=== PATIENT | female | born 1965 | race Caucasian/White ===

== ENCOUNTER 2017-04-16 08:04 | Emergency (ER) | payer OTHER ==
[~2017-04-16 08:04] MED LIST: CELEXA10 MG PO; CIPROFLOXACIN500 MG PO; DIFLUCAN150 MG PO; HYDROCODONE BIT1 T11 PO
[2017-04-16 08:09] VITALS: BP 150/77
[2017-04-16 08:49] LABS: BILIRUBIN NEGATIVE (NEGATIVE); BLOOD NEGATIVE (NEGATIVE); CLARITY SL CLOUDY (CLEAR); COLOR YELLOW (YELLOW); GLUCOSE NEGATIVE (NEGATIVE); KETONE NEGATIVE (NEGATIVE); LEUKO ESTERASE NEGATIVE (NEGATIVE); NITRITE NEGATIVE (NEGATIVE); PH 5.5 (5.0-9.0); PROTEIN NEGATIVE (NEGATIVE); UROBILINOGEN 0.2 E.U./dl (0.2-1.0)
[2017-04-16 08:59] LABS: BACTERIA TRACE; MUCOUS 1+; URINE REFLEX COMMENT NO (NO)
[2017-04-16] MEDS ORDERED: CYCLOBENZAPRINE10 MG PO (09:17)
[2017-04-16] MEDS ORDERED: ULTRAM50 MG PO (09:17)
== END 2017-04-16 09:23 | disposition home or self-care (01) ==
LOC: ED 08:04
PROVIDERS: Emergency Medicine
DX: S39.012A Strain of muscle, fascia and tendon of lower back, initial encounter (principal); Z88.1 Allergy status to other antibiotic agents; Z88.2 Allergy status to sulfonamides; Z90.49 Acquired absence of other specified parts of digestive tract; X50.9XXA Other and unspecified overexertion or strenuous movements or postures, initial encounter; Y93.89 Activity, other specified; Y92.9 Unspecified place or not applicable; Y99.9 Unspecified external cause status

== ENCOUNTER → 2019-04-09 | Outpatient (CLI) | payer OTHER ==
[~2019-04-09] MED LIST changes: +CYCLOBENZAPRINE10 MG PO; +IRON325 M1 PO; +ULTRAM50 MG PO
--- NOTE | ~2019-04-09 | ST ---
[place], [place] EXERCISE STRESS TEST REPORT NAME: [facility] #: [id number] UNIT #: [id number] ROOM: DOCTOR: ANGEL FLOYD MD BIRTHDATE: [birth year] DOS: 04/09/2019 The patient walked on the Fidel protocol, duration of 7 minutes, achieving a heart rate of 147, which is 88% predicted heart rate. Peak blood pressure is 150/80. The patient had no chest discomfort, no dysrhythmia. No EKG changes, suggestion of myocardial ischemia or injury. Baseline echo obtained. Echo obtained with a peak heart rate, there is improvement of ejection fraction, thickening of all the segments. No wall motion abnormalities. FINAL IMPRESSION: Normal EKG with exercise. No chest pain with exercise. No dysrhythmia with exercise. Normal echo response with improvement of ejection fraction, thickening of all the segments. This is a normal exercise stress echocardiogram. ANGEL FLOYD MD CM:STRESS:EXERCISE STRESS TEST REPORT [id number] ANGEL FLOYD MD
--- NOTE | 2019-04-09 07:00 | NUR ---
INFORMED CONSENT OBTAINED FOR EXERCISE STRESS ECHO WITH DR. FLOYD. RESTING EKG NSR WITH A SUPINE HR OF 73 WITH BP OF 118/78 AND HR OF 81 WITH BP OF 116/78 IN STANDING POSITION. PT COMPLETED 7:08 OF A 2:00 KEILA PROTOCOL WITH COMPLETION OF 1:08 OF STAGE IV AT 4.2 MPH AND 16% GRADE. REACHED A PEAK HR OF 147 WHICH IS 88% OF PREDICTED MAX AND A PEAK BP OF 150/78. TEST TERMINATED BECAUSE OF PHYSICAN DISCRETION. HAD NO CHEST PAIN OR ANY EKG CHANGES. NEGATIVE EXERCISE STRESS ECHO. SEE ECHO REPORT FOR FULL REPORT. HAS A HIGH EXERCISE TOLERANCE. LAST RECOVERY HR OF 74 WITH BP OF 118/50. IV DISCONTINUED AND DISCHARGED IN STABLE CONDITION.
== END | disposition home or self-care (01) ==
LOC: CARD 00:54
DX: I49.3 Ventricular premature depolarization (principal); R94.31 Abnormal electrocardiogram [ECG] [EKG]

== ENCOUNTER 2019-10-21 15:41 | Emergency (ER) | payer OTHER ==
[~2019-10-21] VITALS: Ht 154.9 cm; Wt 65.8 kg
[2019-10-21 15:42] VITALS: BP 142/76
[2019-10-21] MEDS ORDERED: DOXYCYCLINE100 M3 PO ×2 (16:30→16:31)
[2019-10-21] MEDS ORDERED: IBUPROFEN600 MG PO ×2 (16:30→16:31)
== END 2019-10-21 16:48 | disposition home or self-care (01) ==
LOC: ED 15:41
DX: L02.31 Cutaneous abscess of buttock (principal); Z88.1 Allergy status to other antibiotic agents; Z88.2 Allergy status to sulfonamides; Z79.899 Other long term (current) drug therapy

== ENCOUNTER 2019-12-01 21:39 | Emergency (ER) | payer OTHER ==
[~2019-12-01] VITALS: Ht 154.9 cm; Wt 65.8 kg
[~2019-12-01 21:39] MED LIST changes: +DOXYCYCLINE100 M3 PO; +IBUPROFEN600 MG PO
[2019-12-01 21:42] VITALS: BP 127/72
== END 2019-12-02 03:58 | disposition home or self-care (01) ==
LOC: ED 21:39
DX: S96.911A Strain of unspecified muscle and tendon at ankle and foot level, right foot, initial encounter (principal); Z88.1 Allergy status to other antibiotic agents; Z88.2 Allergy status to sulfonamides; Z79.899 Other long term (current) drug therapy; W10.8XXA Fall (on) (from) other stairs and steps, initial encounter; Y93.89 Activity, other specified; Y92.098 Other place in other non-institutional residence as the place of occurrence of the external cause; Y99.8 Other external cause status

== ENCOUNTER → 2020-06-08 | Outpatient (CLI) | payer OTHER ==
[2020-06-08 10:46] LABS: BASO # 0.1 10*3/uL (0.0-0.1); BASO % 0.8 % (0.0-1.0); EOS # 0.2 10*3/uL (0.0-0.4); EOS % 2.4 % (1.0-4.0); HEMATOCRIT 38.7 % (37.0-47.0); LYMPH # 1.4 10*3/uL (1.3-4.4); MEAN CELL VOLUME 91.3 fl (81.0-99.0); MEAN CORPUSCULAR HGB 29.7 pg (27.0-31.0); MEAN CORPUSCULAR HGB CONC 32.6 g/dl (33.0-37.0); MEAN PLATELET VOLUME 11.3 fl (9.6-12.3); MONO # 0.5 10*3/uL (0.1-1.0); MONO % 5.9 % (3.0-9.0); NEUT # 6.5 10*3/uL (2.3-7.9); NEUT % 74.7 % (47.0-73.0); PLATELET COUNT AUTOMATED 266 10*3/uL (130-400); RED BLOOD COUNT 4.24 10*6/uL (4.10-5.10); RED CELL DISTRI WIDTH 13.3 % (0-14.5); WHITE BLOOD COUNT 8.6 10*3/uL (4.8-10.8)
[2020-06-08 10:52] LABS: BILIRUBIN NEGATIVE (NEGATIVE); BLOOD 1+ (NEGATIVE); CLARITY CLEAR (CLEAR); COLOR YELLOW (YELLOW); GLUCOSE NEGATIVE (NEGATIVE); KETONE NEGATIVE (NEGATIVE); LEUKO ESTERASE NEGATIVE (NEGATIVE); NITRITE NEGATIVE (NEGATIVE); SPECIFIC GRAVITY 1.015 (1.005-1.030); UROBILINOGEN 0.2 E.U./dl (0.2-1.0)
[2020-06-08 10:58] LABS: BACTERIA TRACE; EPITHELIAL CELLS 0-2; WBC 0-2 wbc/hpf (0-5)
[2020-06-08 11:14] LABS: ALBUMIN 3.6 gm/dl (3.1-4.5); ALKALINE PHOSPHATASE 52 U/L (45-117); BUN 16 mg/dl (7-24); CHLORIDE 112 mmol/L (98-107); CHOLESTEROL 201 mg/dL (<200); CREATININE 0.97 mg/dL (0.55-1.02); HDL CHOLESTEROL 63 mg/dl (40-60); IRON 85 ug/dL (50-170); LDL CHOLESTEROL 119 mg/dL (9-159); POTASSIUM 3.9 mmol/L (3.5-5.1); SGOT/AST 14 IU/L (3-35); SGPT/ALT 22 U/L (12-78); SODIUM 142 mmol/L (136-145); TOTAL IRON BINDING CAPACITY 297 ug/dl (250-450); TOTAL PROTEIN 7.3 gm/dL (6.4-8.2); TRIGLYCERIDES 93 mg/dl (<150); VLDL CHOLESTEROL 19 mg/dL (6-40)
[2020-06-08 11:43] LABS: FERRITIN 24.5 ng/mL (10.0-291.0)
[2020-06-09 08:11] LABS: RHEUMATOID ARTHRITIS FACTOR <10.0 IU/mL (0.0-13.9)
[2020-06-09 12:07] LABS: ANTI-DSDNA ANTIBODIES <1 IU/mL (0-9)
== END | disposition home or self-care (01) ==
LOC: LAB 10:23
PROVIDERS: Family Medicine
DX: E55.9 Vitamin D deficiency, unspecified (principal); R53.83 Other fatigue; R79.89 Other specified abnormal findings of blood chemistry

== ENCOUNTER → 2023-02-15 | Outpatient (CLI) | payer OTHER | END | disposition home or self-care (01) | LOC: RAD 15:02 | PROVIDERS: ATTEND Family Medicine | DX: M19.012 Primary osteoarthritis, left shoulder (principal) ==

== ENCOUNTER → 2023-02-27 | Outpatient (CLI) | payer OTHER | END | disposition home or self-care (01) | LOC: MRI 07:56 | PROVIDERS: ATTEND Family Medicine | DX: S43.402A Unspecified sprain of left shoulder joint, initial encounter (principal); M77.8 Other enthesopathies, not elsewhere classified; M75.52 Bursitis of left shoulder; X58.XXXA Exposure to other specified factors, initial encounter; Y93.89 Activity, other specified; Y92.89 Other specified places as the place of occurrence of the external cause; Y99.8 Other external cause status ==

== ENCOUNTER 2024-01-04 11:01 | Emergency (ER) | payer OTHER ==
[~2024-01-04] VITALS: Ht 154.9 cm; Wt 72.6 kg
[2024-01-04 11:18] VITALS: BP 141/64
[2024-01-04] MEDS ORDERED: Tdap Vaccine 0.5 ML SYR (Adult Vaccine) IM ONE (11:35)
[2024-01-04] MEDS ORDERED: VIBRAMYCIN100 MG PO (11:36)
== END 2024-01-04 12:16 | disposition home or self-care (01) ==
LOC: ED 11:01
DX: L02.414 Cutaneous abscess of left upper limb (principal); Z88.6 Allergy status to analgesic agent; Z88.2 Allergy status to sulfonamides; Z88.8 Allergy status to other drugs, medicaments and biological substances; Z98.51 Tubal ligation status; Z90.49 Acquired absence of other specified parts of digestive tract; Z98.890 Other specified postprocedural states

== ENCOUNTER 2024-01-07 11:46 | Emergency (ER) | payer OTHER ==
[~2024-01-07] VITALS: Ht 154.9 cm; Wt 72.6 kg
[~2024-01-07 11:46] MED LIST changes: +VIBRAMYCIN100 MG PO
[2024-01-07 12:28] VITALS: BP 135/84
== END 2024-01-07 12:53 | disposition home or self-care (01) ==
LOC: ED 11:46
DX: Z48.01 Encounter for change or removal of surgical wound dressing (principal); Z88.6 Allergy status to analgesic agent; Z88.2 Allergy status to sulfonamides; Z88.8 Allergy status to other drugs, medicaments and biological substances; Z98.51 Tubal ligation status; Z90.49 Acquired absence of other specified parts of digestive tract; Z98.890 Other specified postprocedural states